=== PATIENT | female | born 1975 | race Two or more races ===

== ENCOUNTER 2018-05-19 15:08 | Emergency (ER) | payer OTHER ==
[~2018-05-19] VITALS: Ht 157.5 cm; Wt 66.8 kg
[2018-05-19 15:46] VITALS: BP 127/82
== END 2018-05-19 16:23 | disposition home or self-care (01) ==
LOC: ED 16:15
DX: Z00.00 Encounter for general adult medical examination without abnormal findings (principal); R21 Rash and other nonspecific skin eruption; F17.200 Nicotine dependence, unspecified, uncomplicated
CPT/HCPCS: 99283